=== PATIENT | female | born 2000 | race Caucasian/White ===

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

== ENCOUNTER 2020-01-23 16:07 | Outpatient (REF) | payer MEDICAID, SELFPAY ==
[2012-09-04 14:33] VITALS: O2SAT 98
[2020-01-27 15:09] LABS: Chlamydia Result Positive (Negative); GC Result Negative (Negative)
== END 2020-01-23 16:27 ==
LOC: LBN 16:07
PROVIDERS: PCP Pediatrics; Visit Provider Nurse Practitioner Family
DX: Z11.3 Encounter for screening for infections with a predominantly sexual mode of transmission (principal)
CPT/HCPCS: 87491; 87591

== ENCOUNTER 2020-03-30 16:40 | Outpatient (REF) | payer MEDICAID, SELFPAY ==
[2012-09-04 14:33] VITALS: O2SAT 98
[2020-04-01 13:26] LABS: Chlamydia Result Negative (Negative); GC Result Negative (Negative)
== END 2020-03-30 17:00 ==
LOC: LBN 16:40
PROVIDERS: PCP Pediatrics; Visit Provider Nurse Practitioner Family
DX: Z11.3 Encounter for screening for infections with a predominantly sexual mode of transmission (principal)
CPT/HCPCS: 87491; 87591